=== PATIENT | male | born 1960 | race Caucasian/White ===

== ENCOUNTER 2017-06-25 10:23 | Emergency (ER) | payer BC ==
[~2017-06-25] VITALS: Ht 172.7 cm; Wt 86.8 kg
[2017-06-25 13:42] LABS: POINT-OF-CARE METER ID UU13113747
[2017-06-25 14:39] LABS: POINT-OF-CARE METER ID UU13113747
[2017-06-25 15:30] VITALS: BP 131/87
== END 2017-06-25 15:31 | disposition home or self-care (01) ==
LOC: EME 10:23 → AMB 10:23 → EME 15:31
PROVIDERS: Emergency Medicine
DX: T18.128A Food in esophagus causing other injury, initial encounter (principal); K20.9 Esophagitis, unspecified; K29.70 Gastritis, unspecified, without bleeding; Z80.0 Family history of malignant neoplasm of digestive organs
CPT/HCPCS: 82948; 99281; 99284; J0330; J1100; J2405

== ENCOUNTER → 2017-07-04 | Outpatient (CLI) | payer BC | END | disposition home or self-care (01) | LOC: RAD 08:49 | DX: R13.14 Dysphagia, pharyngoesophageal phase (principal); Z80.0 Family history of malignant neoplasm of digestive organs | CPT/HCPCS: 74220 ==